=== PATIENT | female | born 1985 | race Asian ===

== ENCOUNTER 2023-05-14 12:25 | Outpatient (CLI) | payer OTHER | END 2023-05-14 12:26 | disposition home or self-care (01) | LOC: CSHMAMMO 12:25 | PROVIDERS: ATTEND Family Medicine | DX: Z12.31 Encounter for screening mammogram for malignant neoplasm of breast (principal); N64.89 Other specified disorders of breast | CPT/HCPCS: 77063; 77067 ==

== ENCOUNTER 2023-05-22 08:04 | Outpatient (CLI) | payer OTHER | END 2023-05-22 08:05 | disposition home or self-care (01) | LOC: CSHMAMMO 08:04 | PROVIDERS: ATTEND Family Medicine | DX: N64.89 Other specified disorders of breast (principal); N63.21 Unspecified lump in the left breast, upper outer quadrant | CPT/HCPCS: G0279 ==

== ENCOUNTER 2023-07-09 09:28 | Outpatient (CLI) | payer OTHER | END 2023-07-09 09:29 | disposition home or self-care (01) | LOC: CSHLAB 09:28 | PROVIDERS: ATTEND Obstetrics & Gynecology | DX: Z01.812 Encounter for preprocedural laboratory examination (principal); N83.201 Unspecified ovarian cyst, right side | CPT/HCPCS: 84703; 85027; 86850; 86900; 86901 ==

== ENCOUNTER 2023-07-11 08:32 | Day surgery (SDC) | payer OTHER ==
[2023-07-09 11:49] LABS: Hematocrit 37.9 % (34.9-44.5); Hemoglobin 12.3 g/dL (12.0-15.5); Mean Corpuscular HGB CONC 32.5 g/dL (32.0-36.0); Mean Corpuscular Hemoglobin 25.8 pg (27.0-33.0); Mean Corpuscular Volume 79.6 fl (81.6-98.3); Mean Platelet Volume 9.8 fl (7.4-10.4); Platelet Count 277 10x3/uL (150-450); RBC Distribution Width 15.5 % (11.5-14.5); Red Blood Cell (RBC) Count 4.76 10x6/uL (3.90-5.03)
[2023-07-09 11:58] LABS: BHCG - Serum Negative (NEGATIVE); Pregs Control Background? CLEAR/WHITE (CLR/WHITE); Pregs Control Bar Appear? YES (CONTROL BAR)
[2023-07-10 15:58] VITALS: BMI 32.5
[2023-07-11] MEDS ORDERED: Bupivacaine PF 0.5% 30 ML VIAL ONE (09:04)
[2023-07-11] MEDS ORDERED: EPINEPHrine 1 MG/ML VIAL ONE (09:04)
[2023-07-11] MEDS ORDERED: CeleCOXIB 100 MG CAP ONE (09:15)
[2023-07-11] MEDS ORDERED: Famotidine/PF 20 mg/2ml Vial ONE (09:16)
[2023-07-11] MEDS ORDERED: Gabapentin 300 MG CAP ONE (09:16)
[2023-07-11] MEDS ORDERED: Fentanyl 250 MCG/5 ML VIAL ONE (09:22)
[2023-07-11] MEDS ORDERED: PROPOFOL 40 ML ONE (09:22)
[2023-07-11] MEDS ORDERED: Ketorolac Tromethamine 30 MG/ML VIAL ONE (09:22)
[2023-07-11] MEDS ORDERED: Dexamethasone 4 mg/ml Vial ONE (09:22)
[2023-07-11] MEDS ORDERED: Rocuronium Bromide 10 MG/ML (10ML VIAL) ONE (09:22)
[2023-07-11] MEDS ORDERED: Ondansetron PF 4 MG/2 ML Vial ONE (09:22)
[2023-07-11] MEDS ORDERED: Lidocaine 2% PF 5 ML VIAL ONE (09:22)
[2023-07-11] MEDS ORDERED: Midazolam HCl 2 mg/2 ml Vial ONE (09:23)
[2023-07-11] MEDS ORDERED: CEFAZOLIN 2 GM VIAL ONE (10:31)
[2023-07-11] MEDS ORDERED: metroNIDAZOLE 500 MG/100 ML BAG ONE (11:02)
[2023-07-11] MEDS ORDERED: Estradiol 0.05mg/24 Hour Patch (Weekly) ONE (12:27)
[2023-07-11] MEDS ORDERED: fentaNYL 50 mcg/mL 1 mL Vial ONE ×2 (12:52→13:02)
== END 2023-07-11 15:45 | disposition home or self-care (01) ==
LOC: CSHSDC 08:32
PROVIDERS: ATTEND Obstetrics & Gynecology
PROC: 0UT94ZZ Resection of Uterus, Percutaneous Endoscopic Approach (ICD-10-PCS; principal; 2023-07-11)
PROC: 0UT04ZZ Resection of Right Ovary, Percutaneous Endoscopic Approach (ICD-10-PCS; principal; 2023-07-11)
PROC: 0UT54ZZ Resection of Right Fallopian Tube, Percutaneous Endoscopic Approach (ICD-10-PCS; principal; 2023-07-11)
DX: D25.9 Leiomyoma of uterus, unspecified (principal); N80.03 Adenomyosis of the uterus; N72 Inflammatory disease of cervix uteri; N88.8 Other specified noninflammatory disorders of cervix uteri; N83.11 Corpus luteum cyst of right ovary; N71.9 Inflammatory disease of uterus, unspecified; D50.9 Iron deficiency anemia, unspecified; N73.6 Female pelvic peritoneal adhesions (postinfective); J45.909 Unspecified asthma, uncomplicated; K46.9 Unspecified abdominal hernia without obstruction or gangrene; Z98.890 Other specified postprocedural states; Z79.899 Other long term (current) drug therapy; Z86.16 Personal history of COVID-19
CPT/HCPCS: 84703; 85027; 86850; 86900; 86901; 88307; C9250; J0171; J1100; J1885; J2001; J2250; J2405; J2704; J3010; S0020; S0028